=== PATIENT | female | born 1970 | race Caucasian/White ===

== ENCOUNTER → 2020-09-12 14:39 | Outpatient (CLI) | payer OTHER, SELFPAY ==
[2020-09-12 15:37] LABS: RBC Urine None Seen (0-5/HPF)
[2020-09-12 16:50] LABS: Add Manual Diff / Slide Review NO; Appearance Urine UA CLEAR; Basophils Absolute Auto 0 /uL (0-100); Basophils Percent Auto 0.2 % (0-2); Bilirubin Urine UA NEGATIVE (NEGATIVE); Color Urine UA YELLOW; Eosinophils Absolute Auto 200 /uL (0-450); Eosinophils Percent Auto 2.1 % (2-4); Glucose Urine UA NEGATIVE (Negative); Hematocrit 37.4 % (36-46); Hemoglobin 12.9 g/dL (12.0-16.0); Ketones Urine UA NEGATIVE (NEGATIVE); Leukocyte Esterase Urine UA NEGATIVE (NEGATIVE); Lymphocytes Absolute Auto 2700 /uL (1100-4500); Lymphocytes Percent Auto 30.7 % (25-40); Mean Corpuscular HGB Conc 34.5 % (30-36); Mean Corpuscular Hemoglobin 30.4 PG (26-34); Mean Corpuscular Volume 88.1 fL (80-100); Monocytes Absolute Auto 400 /uL (0-900); Monocytes Percent Auto 4.9 % (3-14); Neutrophils Absolute Auto 5400 /uL (1500-7000); Neutrophils Percent Auto 62.1 % (50-75); Nitrite Urine UA NEGATIVE (Negative); Occult Blood Urine UA NEGATIVE (Negative); Platelet Count 296 X10^3/uL (150-400); Protein Urine UA 1+ (Negative); Red Blood Cell Count 4.24 X10^6/uL (4.0-5.2); Red Cell Distribution Width 14.3 % (11.6-14.8); Urobilinogen Urine UA 0.2 E.U./dL (0.2); White Blood Cell Count 8.8 X10^3/uL (4.5-11.0)
[2020-09-12 17:00] LABS: COVID19 -Nasal RAPID Negative (Negative)
[2020-09-12 17:20] LABS: Blood Urea Nitrogen 12 mg/dL (7-17); Calcium 9.6 mg/dL (8.4-10.2); Carbon Dioxide 31 mmol/L (22-32); Chloride 100 mmol/L (98-107); Estimated Glomerular Filt Rate > 60.0 mL/min (>60); Glucose 93 mg/dL (70-100); HEMOLYSIS < 15 (0-50); Potassium 4.2 mmol/L (3.4-5.1); Sodium 136 mmol/L (137-145)
[2020-09-12 17:21] LABS: Bacteria Urine Few (2-10); Culture Indicated Urine Cult Not Indicated; Squamous Epithelial Cell Urine 1-5 /HPF (0-5/HPF); WBC Urine 0-1/HPF (0-5/HPF); pH Urine UA 6.5 (4.5-8.0)
== END ==
PROVIDERS: Physician Assistant; PCP Internal Medicine; Referring Provider Orthopaedic Surgery Orthopaedic Surgery of the Spine; Visit Provider Orthopaedic Surgery Orthopaedic Surgery of the Spine
DX: Z01.812 Encounter for preprocedural laboratory examination (principal); Z11.59 Encounter for screening for other viral diseases; N39.0 Urinary tract infection, site not specified
CPT/HCPCS: 36415; 80048; 81001; 85025; 87635

== ENCOUNTER 2020-09-14 07:11 | Inpatient (IN) | payer OTHER, SELFPAY ==
[2020-09-12 13:59] VITALS: BMI 31.4
[2020-09-14] VITALS (15 sets, daily range): BP systolic 108–142; BP diastolic 58–89; PULSE 83–119; RESP 14–18; TEMP 36–37.1; O2SAT 91–96; BMI 31.4
--- NOTE | 2020-09-14 | DI.RAD.S_ITS ---
PROCEDURE: XR LUMBAR SPINE 2-3V INDICATIONS: L5-S1 TLIF TECHNIQUE: 2 intraoperative fluoroscopic views of the lumbar spine were acquired. COMPARISON: None. FINDINGS: Intraoperative fluoroscopic images of lower lumbar spine shows posterior fusion hardware at L5-S1 level with intervertebral spacer placement. IMPRESSION: Fluoro guidance was provided intraoperatively for fusion of L5-S1 vertebral bodies. Dictated by: Mundo Arias M.D. on 09/14/2020 at 11:53 Approved by: Mundo Arias M.D. on 09/14/2020 at 11:54
[2020-09-14] MEDS: LACTATED RINGERS 1,000 ML 42 ML IV ×2 (08:05→10:55)
--- NOTE | 2020-09-14 08:37 | PM.PREOP ---
Pre-operative Note COVID-19 COVID-19 status: Negative Result date/Date tested (Pos, Neg/Pending): 09/12/20 Interval Note History & Physical reviewed/Exam performed by Physician: Yes Changes to H&P: No
[2020-09-14] MEDS: ACETAMINOPHEN 325 MG TABLET 975 MG PO (08:43)
[2020-09-14] MEDS: CLINDAMYCIN 900 MG/50 ML PIGGYBACK 50 MG IV ×2 (08:55→16:24)
--- NOTE | 2020-09-14 09:21 | SUR.OPER ---
Prone on spine table, head in foam head support, padded chest and pelvic supports, gel pad at knees, lower legs supported by pillows; nipples, genitalia and toes free of pressure, arms secured on foam padded arm boards at <90 degrees abduction. Tape over blanket at thigh secured to table.
[2020-09-14] MEDS: BUPIVACAINE LIPOSOME 266 MG/20 ML VIAL INJ (09:29)
[2020-09-14] MEDS: BUPIVACAINE 0.25% W/ EPI (PF) 10 ML VIAL 20 ML INJ (09:30)
--- NOTE | 2020-09-14 11:08 | P.OP_ITS ---
Operative Date/Time/Diagnoses Date of procedure: 09/14/20 Time of procedure: 08:49 Pre-op diagnosis: 1. L5-S1 spinal stenosis 2. L5-S1 spondylolisthesis Post-op diagnosis: same Procedure & Clinicians Procedure: 1. L5-S1 Postero-lateral and posterior interbody fusion 2. L5-S1 interbody cage placement. 3. L5-S1 decompressive laminectomy with bilateral facetecomies 4. L5-S1 Posterior non-segmental instrumentation 5. [place] of bone marrow from iliac crest 6. Utilization of microsurgical technique and operating microscope Same procedure as scheduled: Yes Indications: Patient has been having chronic back pain and worsening lumbar radiculopathy. Patient failed multiple conservative management with worsening pain weakness and numbness in her lower extremity. Patient has been having difficulty performing activity of daily living. After discussing risks benefits of treatment options, patient elected proceed with surgery. Surgeon: Josh Sheriff [employer] Literature Professor: Lolita Bocanegra Click Yes if Unassisted: No Anesthesia Type: General Operative Notes Closure Type: primary Specimen(s): none sent Prosthetic devices, grafts, tissues, transplants, or devices: Globus revolve screws, Rise cage Estimated Blood Loss (mL): 100 Blood products transfused: none Procedure in detail: Patient was seen in the preoperative area. Risks and benefits of the surgery was discussed with the patient. Informed consent was obtained from the patient and placed in the chart. Surgical site was marked. Patient was taken to the operative room. General anesthesia was administered. Prophylactic antibiotic was given to the patient less than 30 min before the incision was made. Patient was placed into a prone position on the John table. Patient's back was then prepped and draped in the sterile fashion. Time- out was performed at this time. Using AP and lateral C-arm imaging the interval between L5-S1 was identified and marked on patient's back. A 2 inch incision 2 in from midline was made on the right side first. The fascia was incised in line with skin incision. Globus MARS retractors was placed inside the incision and docked onto the L5 lamina. Using microsurgical technique and operating microscope, a L5 laminectomy and L5- S1 facetectomy was performed using a Kerrison rongeur. Patient was found have severe neural foraminal stenosis and required a total facetectomy for decompression which rendered L5-S1 grossly unstable and required a fusion procedure at the same time. The disc space at L5-S1 was identified. And a total diskectomy was performed at L5-S1 level. The endplates were decorticated using a rasp and shaver. The total diskectomy and decortication was performed at L5-S1 level in order to to accomplish a L5-S1 fusion. The local bone from the laminectomy and facetectomy was saved for local bone grafting. After the total diskectomy and decortication was completed, Trifecta bone graft material was combined with local bone that was harvested earlier. At this time, a separate skin is incision was made over the iliac crest. A Jamshidi needle was inserted into the iliac crest through a separate skin incision. 5 cc of bone marrow aspiration was obtained through the separate skin incision using a Jamshidi needle from the iliac crest. The bone marrow aspiration was combined with local bone and the Trifecta bone grafting material. The bone grafting material was placed into the L5-S1 interbody space along with a expandable cage. The cage was expanded to its maximum height using the torque limiting screwdriver. At this time a mirror image incision was made on the left side. The fascia was incised in line with the skin incision. Globus MARS retractor was inserted and docked onto the L5-S1 posterolateral gutter. Using the power drill, posterior- lateral decortication was performed at L5-S1 level until bleeding cortical bone was identified. The remaining bone grafting material was placed into the L5-S1 posterior lateral gutter he order to accomplish posterolateral fusion at the L5- S1 level. Using the double C-arm technique, pedicle screws were placed into the L5-S1 pedicles bilaterally. This was done by placing the Jamshidi needle into the pedicles, then placing the guidewires over the Jamshidi needle, and finally placing the cannulated screws over the guidewires bilaterally. After the pedicle screws were placed, 2 titanium rods was locked into the heads of the pedicle screws using locking caps and torque limiting screwdriver. After all the hardware was placed, and confirmed with AP and lateral C-arm imaging, the wound was then irrigated with sterile normal saline and packed with Ray-Preethi gauze for 3 min to accomplish hemostasis. After the gauze was removed the deep fascia was closed with #1 Vicryl suture. The subcutaneous layer was closed with 2-0 Vicryl. The skin was closed with skin ca. Patient tolerated the procedure well. There were no complications. Complications: none Post-operative Condition: stable Disposition: PACU Plan for aftercare: Admit to inpatient hospital
[2020-09-14] MEDS: hydrOXYzine 50 MG/ML INJ 25 MG IM (11:31)
[2020-09-14] MEDS: OXYCODONE IR 5 MG TABLET PO (11:42)
--- NOTE | 2020-09-14 11:46 | SUR.PHASEI ---
Report given to Liz STEVEN .
--- NOTE | 2020-09-14 13:30 | PC.NURSE ---
Addendum entered by Abel Saba R.N. 09/14/20 14:35: Did not hear back from daron GREER yet, fax sent to surgery (Dr. Sheriff and/or Daron GREER) for clarification on duplicate orders/post of hip order set. Patient remains VSS. Dressing to surgical back site remains CDI. Moving all extremities, denies numbness or tingling. No urge to void yet at this time, continue to monitor for post op void. incentive spirometer given to patient, educated on its use, states understanding but too tired to try at this time, and left at bedside. Plan to work with physical therapy as ordered. Call light within reach, continue to monitor. Original Note: Clarification needed on transfer order sets, as well as clarification on if IV fluids needed. Message left with Parminder GREER, will follow.
--- NOTE | 2020-09-14 14:32 | PT.IIE ---
Current Diagnoses Other spondylosis with radiculopathy, lumbosacral region (09/14/20) Spinal stenosis, lumbar region without neurogenic claudication (09/14/20) Surgery Performed Operation Date: 09/14/20 08:45 Actual Procedures p L5-S1 TLIF with instumentation - Josh Sheriff MD Surgical History (Last Updated 09/12/20 @ 14:10 by Aliyah Caraballo, RN) History of bunionectomy of left great toe History of bunionectomy of right great toe History of carpal tunnel surgery of left wrist (06/18/19) Hx of cervical discectomy (11/03/18) Hx of knee surgery (2018) Hx of knee surgery (2009) Hx of tubal ligation (1991) Medical History (Last Updated 09/12/20 @ 14:10 by Aliyah Caraballo RN) Anxiety Congenital solitary kidney COPD (chronic obstructive pulmonary disease) Depression Fibromyalgia Fusion of spine of cervical region GERD (gastroesophageal reflux disease) Mild intermittent asthma DANNY (obstructive sleep apnea) Osteoarthritis Pneumonia Seasonal allergies Seizure disorder Tumor (02/24/20) UTI (urinary tract infection) Vaginal infection Physical Therapy Inpatient Evaluation/Re-Eval M1 PT/OT-IP Prior Functional Status Start: 09/14/20 15:44 Freq: NEEDED Status: Active Protocol: Document 09/14/20 14:32 AB (Rec: 09/14/20 15:53 AB [id number]) Medical Review Prior Functional Status Medical History Reviewed Yes Communication able to make needs known Mobility and Gait pt sated that she is indpeendent with all mobilities and ambulation without AD Social History Household Members spouse Living Arrangements RV Number of Floors (Floors) Two Floors Number of Stairs To Enter/Railing? 5 steps with L rail and L door grab bar to enter has 1 steps to living/dining robert 2 steps with L wall bar to bedroom Home Environment Standard Height Toilet,Walk in Shower,Built-In Shower Seat Home Equipment Front Wheel Walker,Four Wheel Walker,Straight Cane,Raised Toilet Seat Without Armrests, Hand Held Shower,Grab Bars In Shower M2 PT-IP Current Condition Start: 09/14/20 15:44 Freq: NEEDED Status: Active Protocol: Document 09/14/20 14:32 AB (Rec: 09/14/20 15:53 AB [email or web address]) Physical Therapy Current Condition Current Condition Evaluation Date 09/14/20 Treatment Diagnosis s/p L5S1 posterior fusion/lami ; difficulty in walking Onset Date 09/14/20 Precautions Lumbar Precautions Log Roll,No Twisting,Limit Bending,Lifting Restriction of 10 lbs,Gait Belt above Incisional Area M3 PT-IP Subjective Start: 09/14/20 15:44 Freq: NEEDED Status: Active Protocol: Document 09/14/20 14:32 AB (Rec: 09/14/20 15:53 AB [id number]) Subjective Physical Therapy Visit Type Type Initial Evaluation Visit Start Time 14:32 Visit Stop Time 15:10 Total Visit Minutes 38 Number of SUBSTATION DESIGN DRAFTSPERSON Visits 0 Physical Therapy Visit Comments Patient Comments agreeable to do PT Therapy Pain Assessment Pain When Pain Assessed At Rest Pain Present Pain Present Pain Reported Location lower back Intensity 7 Scale Used Numeric (0 - 10) M4 PT-IP Mobility and Gait Start: 09/14/20 15:44 Freq: NEEDED Status: Active Protocol: Document 09/14/20 14:32 AB (Rec: 09/14/20 15:53 AB [email or web address]) PT-Bed Mobility Assessment Rolling Type of Rolling Log Rolling Level of Assist Standby Assistance Supine to Sit Supine to Sit Standby Assistance Sit to Supine Sit to Supine Standby Assistance PT-Transfer Assessment Sit to and From Stand Sit to and from Stand Contact Guard Assistance,Use of Upper Extremities Equipment Transfer Assistive Device Gait Belt,Front Wheeled Walker Orthotic/Prosthetic Devices or Brace: No Transfers Transfer Destination Chair Transfer Technique ambulated using FWW Transfer Ability Level of Assist Contact Guard Assistance,1 Person Assistance,Use of Upper Extremities Comments Mobility Comments educated on back precautions and log roll bed mobility. completed supine to sit log roll SBA. pt was able to sit on EOB SBA. completed sit to stand CGA and cues. pt ambulated in room ~ 40 ft CGA. agreed to sit on chair. positioned on chair. call light and table placed within reach. Left pt with spouse in room. Gait Assessment Gait Gait Assistance Required: Contact Guard Assist Distance (Feet) 40 Able to Maintain Weight Bearing Status Yes During Gait Assistive Devices Assistive Device Gait Belt,Front Wheeled Walker Orthotic/Prosthetic Devices or Brace: No Gait Deviations General Gait Pattern Antalgic,Decreased Stride Length,Decreased Feet Clearance,Step-to Gait Factors Limiting Gait Function Factors Limiting Gait Function Decreased Activity Tolerance, Decreased Strength,Limited Range of Motion,Pain,Poor Balance,Poor Safety Awareness PT-Balance Assessment Sitting Balance and Reactions Static Sitting Balance Ability Good Dynamic Sitting Balance Ability Good Standing Balance and Reactions Static Standing Balance Ability Fair Dynamic Standing Balance Ability Fair Device Used FWW M5 PT-IP Objective Assessments Start: 09/14/20 15:44 Freq: NEEDED Status: Active Protocol: Document 09/14/20 14:32 AB (Rec: 09/14/20 15:53 AB [id number]) Orientation Orientation/Cognition Level of Alertness Alert Orientation Name,Place,Situation Safety Awareness Understands Safety Issues Memory Description No Deficits Noted Gross Range of Motion Lower Extremity ROM Assessment Within Functional Limits Strength Lower Extremity Strength Assessment Within Functional Limits Coordination Assessment Gross Coordination Gross Coordination WNL Sensation Assessment Sensation Gross Sensation WNL Muscle Tone Muscle Tone WNL Yes M6 PT-IP Treatment Start: 09/14/20 15:44 Freq: NEEDED Status: Active Protocol: Document 09/14/20 14:32 AB (Rec: 09/14/20 15:53 AB [id number]) Physical Therapy Treatment Education Education Provided Precautions,Weight Bearing Status,Post-Op Packet,Safety M7 PT-IP Assessment and Plan Start: 09/14/20 15:44 Freq: NEEDED Status: Active Protocol: Document 09/14/20 14:32 AB (Rec: 09/14/20 15:53 AB [id number]) PT Summary Assessment and Plan Potential Rehabilitation Potential Good Status of Condition at Evaluation Stable Summary Impairments Pain,ROM,Strength,Balance,Bed Mobility,Transfers,Gait, Activity Tolerance Assessment Summary pt requiring SBA to CGA with mobility and plans to go home with spouse to assist her. pt will likely progress during hospital stays. will have to conduct stair training prior to d/c. Goals Bed Mobility Goal Independent Transfer Goal Independent,Front Wheeled Walker Gait Goal Independent,Front Wheel Walker Gait Distance 200 Other Goals up/down platform step using FWW SBA up/down 5 steps L rail SBA Days to Meet Goals 3 Frequency of Treatment Frequency Of Treatment Twice a Day Treatment Plan Physical Therapy Treatment Plan Bed Mobility Training,Transfer Training,Gait Training, Therapeutic Exercise,Balance Retraining,Post Op Education, Discharge Planning,Hot or Cold Pack,Neuromuscular Re-ed, Coordination Retraining,Manual Therapy Other Recommendations and Next Treatment bed mobility, ambulation, Focus stair climbing Recommendations To Nursing Amount of Assist Needed 1 Person Assist Discharge Recommendations PT Discharge Recommendations Home with Assistance Transportation Needs at Discharge Private Vehicle
[2020-09-14] MEDS: OXYCODONE IR 5 MG TABLET 10 MG PO ×3 (14:41→21:07)
[2020-09-14] MEDS: ACETAMINOPHEN 325 MG TABLET 650 MG PO (14:41)
[2020-09-14] MEDS: hydrOXYzine pamoate 25 MG CAPSULE PO ×2 (14:44→21:07)
[2020-09-14] MEDS: SODIUM CHLORIDE 0.9% 1,000 ML 100 ML IV (15:01)
[2020-09-14] MEDS: HYDROMORPHONE 0.5 MG INJ IV (16:24)
[2020-09-14] MEDS: ONDANSETRON 4 MG/2 ML INJ IV (18:15)
[2020-09-14] MEDS: SENNOSIDES 8.6 MG TABLET 17.2 MG PO (21:07)
[2020-09-14] MEDS: DOCUSATE 100 MG CAPSULE PO (21:07)
[2020-09-15] MEDS: SODIUM CHLORIDE 0.9% 1,000 ML 100 ML IV (00:06)
[2020-09-15] MEDS: CLINDAMYCIN 900 MG/50 ML PIGGYBACK 50 MG IV (00:07)
[2020-09-15] MEDS: OXYCODONE IR 5 MG TABLET 10 MG PO ×4 (00:08→11:58)
[2020-09-15] MEDS: hydrOXYzine pamoate 25 MG CAPSULE PO ×3 (04:38→11:58)
[2020-09-15 05:32] VITALS: BP 118/72; PULSE 88; RESP 16; TEMP 36.1; O2SAT 98
[2020-09-15] MEDS: PANTOPRAZOLE 20 MG TABLET PO (05:45)
[2020-09-15 06:05] LABS: Hematocrit 36.1 % (36-46); Hemoglobin 12.3 g/dL (12.0-16.0)
--- NOTE | 2020-09-15 07:47 | PM.PNPO.1 ---
Subjective Subjective Date Patient Seen: 09/15/20 Time Patient Seen: 07:47 Interval history: Patient's pain is [id number] this morning. Denies fever or chills. No nausea or vomiting. Exam Vital Signs (past 8 hours): - 09/14/20 23:52 09/15/20 05:32 Temperature 97.2 F L 97.0 F L Pulse Rate 91 H 88 Respiratory Rate 16 16 Blood Pressure 119/58 L 118/72 Pulse Oximetry 95 98 Oxygen Delivery Method Room Air Oxygen Flow Rate 0 Narrative Exam Narrative: 50-year-old female resting comfortably in bed in no apparent distress. Lumbar dressing is clean, dry and intact. Motor functions intact distal bilateral lower extremities. Sensation is grossly intact to light touch bilateral lower extremities. Both legs are warm and dry. Objective Labs Result Diagrams: 09/15/20 05:05 Labs: Laboratory Results - last 24 hr 09/15/20 05:05 Hgb 12.3 Hct 36.1 PFSH Medical History (Updated 09/12/20 @ 14:10 by Aliyah Caraballo RN) Anxiety Congenital solitary kidney COPD (chronic obstructive pulmonary disease) Depression Fibromyalgia Fusion of spine of cervical region GERD (gastroesophageal reflux disease) Mild intermittent asthma DANNY (obstructive sleep apnea) Osteoarthritis Pneumonia Seasonal allergies Seizure disorder Tumor (02/24/20) UTI (urinary tract infection) Vaginal infection Surgical History (Updated 09/12/20 @ 14:10 by Aliyah Caraballo RN) History of bunionectomy of left great toe History of bunionectomy of right great toe History of carpal tunnel surgery of left wrist (06/18/19) Hx of cervical discectomy (11/03/18) Hx of knee surgery (2018) Hx of knee surgery (2009) Hx of tubal ligation (1991) Social History household members: spouse Smoking Status: Former smoker alcohol intake: current Assessment & Plan Post-op Postoperative Procedures: Procedures Operation Date: 09/14/20 08:45 Actual Procedures Side Surgeon p L5-S1 TLIF with instumentation Josh Sheriff MD Postop day 1. Patient progressing as expected. Mobilize with physical therapy. Likely discharge home today.
[2020-09-15 08:27] VITALS: BP 131/99; PULSE 87
[2020-09-15] MEDS: FLUoxetine 20 MG CAPSULE 40 MG PO (08:27)
[2020-09-15] MEDS: LOSARTAN 50 MG TABLET PO (08:27)
[2020-09-15] MEDS: DOCUSATE 100 MG CAPSULE PO (08:27)
[2020-09-15 08:56] VITALS: BP 132/89; PULSE 79; RESP 14; TEMP 36.7; O2SAT 96
--- NOTE | 2020-09-15 09:17 | OT.IP.EVAL ---
Current Diagnoses Other spondylosis with radiculopathy, lumbosacral region (09/14/20) Spinal stenosis, lumbar region without neurogenic claudication (09/14/20) Surgery Performed Operation Date: 09/14/20 08:45 Actual Procedures p L5-S1 TLIF with instumentation - Josh Sheriff MD Past Medical History (Last Reviewed 09/15/20 @ 11:06 by Ji Zurita PA-C) Anxiety Congenital solitary kidney COPD (chronic obstructive pulmonary disease) Depression Fibromyalgia Fusion of spine of cervical region GERD (gastroesophageal reflux disease) Mild intermittent asthma DANNY (obstructive sleep apnea) Osteoarthritis Pneumonia Seasonal allergies Seizure disorder Tumor (02/24/20) UTI (urinary tract infection) Vaginal infection Surgical History (Last Reviewed 09/15/20 @ 11:06 by Ji Zurita PA-C) History of bunionectomy of left great toe History of bunionectomy of right great toe History of carpal tunnel surgery of left wrist (06/18/19) Hx of cervical discectomy (11/03/18) Hx of knee surgery (2018) Hx of knee surgery (2009) Hx of tubal ligation (1991) Occupational Therapy Inpatient Evaluation/Re-Eval M1 PT/OT-IP Prior Functional Status Start: 09/15/20 11:52 Freq: NEEDED Status: Active Protocol: Document 09/15/20 09:17 [facility] (Rec: 09/15/20 12:18 [facility] [id number]) Medical Review Prior Functional Status Medical History Reviewed Yes Communication able to make needs known Mobility and Gait pt sated that she is indpendent with all mobilities and ambulation without AD Activities of Daily Living and IADL's Pt states due to pain needing increased time to do Adl and IADl needs. Pt states having trouble to chase her bra. Social History Household Members spouse Living Arrangements RV Number of Floors (Floors) Two Floors Number of Stairs To Enter/Railing? 5 steps with L rail and L door grab bar to enter has 1 steps to living/dining robert 2 steps with L wall bar to bedroom Home Environment Standard Height Toilet,Walk in Shower,Built-In Shower Seat Home Equipment Front Wheel Walker,Four Wheel Walker,Straight Cane,Raised Toilet Seat Without Armrests, Hand Held Shower,Grab Bars In Shower M2 OT-IP Current Condition Start: 09/15/20 11:52 Freq: Status: Active Protocol: Document 09/15/20 09:17 [facility] (Rec: 09/15/20 12:18 [facility] [id number]) Occupational Therapy Current Condition Current Condition Evaluation Date 09/15/20 Treatment Diagnosis S/p L5-S1 posterior fusion/ lami Diagnosis Onset Date 09/15/20 Post Operative Precautions Lumbar Precautions Log Roll,No Twisting,Limit Bending,Lifting Restriction of 10 lbs,Gait Belt above Incisional Area M3 OT- IP Subjective and Pain Start: 09/15/20 11:52 Freq: Status: Active Protocol: Document 09/15/20 09:17 [facility] (Rec: 09/15/20 12:18 [facility] [id number]) OT- Subjective Occupational Therapy Visit Type Type Initial Evaluation Visit Start Time 08:05 Visit Stop Time 09:17 Total Visit Minutes 32 Notes Pt seen split time due to having breakfast [phone] and [id number]. Occupational Therapy Visit Comments Patient Comments Pt agreed to get dressed and pt's in the room. Patient/Caregiver Goals TO go home. OT Pain Assessment Pain When Pain Assessed During Mobility Pain Present Pain Present Pain Reported Location lower back Intensity 6 Scale Used Numeric (0 - 10) M4 OT- IP ADL's Start: 09/15/20 11:52 Freq: Status: Active Protocol: Document 09/15/20 09:17 [facility] (Rec: 09/15/20 12:18 [facility] [id number]) OT PAB-Vcoz-Cpoccdy General Evaluation Self-Feeding Ability Independent OT ADL-Grooming General Evaluation Grooming Ability Standby Assistance Areas Needing Assistance Retrieving/Set-up of Grooming Items OT ADL-Oral Care General Eval Oral Care Ability Standby Assistance Comments Oral Care Comments VC to hinge at her hips to spit into the sink or just spit into a cup in order to best follow her back precautions. OT ADL-Dressing General Eval Lower Body Dressing Ability Standby Assistance Areas Needing Assistance Socks Assistive Devices Dressing Assistive Devices Overhead Garage Door Hanger Comments OT Dressing Comments Pt able to comfortable cross her legs over the do LB dressing needs. OT ADL-Toileting General Evaluation Toileting Ability Standby Assistance Comments OT Toileting Comments Pt able to follow back precautions to appropriately wipe from the front but will need assist from the back, pt given information regarding toilet paper , otherwise pt's states will assist. OT ADL-Bathing Comments OT Bathing Comments NOt performed. M5 OT- IP IADL's Start: 09/15/20 11:52 Freq: Status: Active Protocol: Document 09/15/20 09:17 [facility] (Rec: 09/15/20 12:18 [facility] [id number]) OT-Instrumental Activities of Daily Living Home Safety Awareness Awareness of Need for Assistance at Home Good Awareness Ability to Problem Solve Emergency Able to Problem Solve Situations Medication Management Medication Management No Deficits Identified Money Management Money Management No Deficits Identified Money Management Comments Pt's able to assist as needed. Meal Preparation Meal Preparation Caregiver Provides Assist Snaker Snaker Caregiver Provides Assist M6 OT- IP Functional Cognition Start: 09/15/20 11:52 Freq: Status: Active Protocol: Document 09/15/20 09:17 [facility] (Rec: 09/15/20 12:18 [facility] [id number]) Cognitive Factors Limiting Selfcare Function Cognitive Ability Level of Alertness Alert Patient Orientation Name,Age,Birthday,Month,Date, Year,Day of Week,Place, Situation Attention Span Ability Capable of Focused Attention, Capable of Sustained Attention Ability to Follow Commands Able to Follow Multi-Step Commands Memory Description No Deficits Noted Safety Awareness Underestimates Need for Assistance Problem Solving Ability No deficits Noted Cognitive Comments Cognitive Assessment Comments Pt able to follow back precautions with good safety , mainly just vc to slow down and keep the FWW in front of her at all times. OT- Vision and Hearing OT- Hearing Assessment OT- Hearing Assessment WFL OT- Vision Assessment Visual Acuity Glasses For Reading M7 OT- IP Mobility and Balance Start: 09/15/20 11:52 Freq: Status: Active Protocol: Document 09/15/20 09:17 [facility] (Rec: 09/15/20 12:18 [facility] [id number]) OT- Bed Mobility Assessment Rolling Type of Rolling Roll to Left Level of Assistance Standby Assistance Supine to Sit Supine to Sit Assist Standby Assistance Sit to Supine Sit to Supine Assist Standby Assistance Scooting Scooting to Edge of Bed Standby Assistance OT-Transfer Assessment Sit to and From Stand Sit to and from Stand Standby Assistance Transfers Transfer Ability Standby Assistance Technique Transfer Destination Bed,Chair,Shower Stall Transfer Technique Stand Step Pivot Devices Transfer Assistive Devices Gait Belt,Front Wheeled Walker Comments Mobility Comments Pt SBA for all mobility needs with FWW. OT- Balance Assessment Sitting Balance and Reactions Static Sitting Balance Ability Normal Dynamic Sitting Balance Ability Normal Standing Balance and Reactions Static Standing Balance Ability Good M8 OT- IP Objective Assessments Start: 09/15/20 11:52 Freq: Status: Active Protocol: Document 09/15/20 09:17 [facility] (Rec: 09/15/20 12:18 [facility] [id number]) OT Gross Range of Motion Upper Extremity Range of Motion Assessment Within Functional Limits OT-Muscle Tone Assessment Muscle Tone WNL Yes M9 OT- IP Assessment and Plan Start: 09/15/20 11:52 Freq: Status: Active Protocol: Document 09/15/20 09:17 [facility] (Rec: 09/15/20 12:18 [facility] [id number]) OT Summary Assessment and Plan Potential Rehabilitation Potential Excellent Analytic Complexity at Evaluation Low Summary OT Impairments Pain,Functional Mobility, Toileting,Bathing Progress Towards Goals Progressing Toward Goals Assessment Summary Pt low complexity, doing well, pt and has good understanding for all equipment needs, back precautions for ADL and functional mobility. Pt issued a firestopper installer and long handled sponge and pt to look into possible getting a toilet paper aid. Pt has a supportive to be able to assist as needed. Goals Dressing Goal Independent Toileting Goal Independent Patient/Caregiver Education Goal Demonstrate Post-Op Precautions,Caregiver Independent Assisting Patient Days to Meet Goals 1 Frequency of Treatment Frequency Of Treatment Once a Day Treatment Plan OT Treatment Plan ADL Training,Functional Mobility,Patient/Family Education,Discharge Planning Discharge Recommendations OT Discharge Recommendations Home with Assistance Home Equipment Needs toilet paper aid Transportation Needs at Discharge Private Vehicle
--- NOTE | 2020-09-15 10:19 | PT.IPTN ---
Current Diagnoses Other spondylosis with radiculopathy, lumbosacral region (09/14/20) Spinal stenosis, lumbar region without neurogenic claudication (09/14/20) Surgery Performed Operation Date: 09/14/20 08:45 Actual Procedures p L5-S1 TLIF with instumentation - Josh Sheriff MD Physical Therapy Treatment Note M2 PT-IP Current Condition Start: 09/14/20 15:44 Freq: NEEDED Status: Active Protocol: Document 09/14/20 14:32 [facility] (Rec: 09/14/20 15:53 AB [id number]) Physical Therapy Current Condition Current Condition Evaluation Date 09/14/20 Treatment Diagnosis s/p L5S1 posterior fusion/lami ; difficulty in walking Onset Date 09/14/20 Precautions Lumbar Precautions Log Roll,No Twisting,Limit Bending,Lifting Restriction of 10 lbs,Gait Belt above Incisional Area M3 PT-IP Subjective Start: 09/14/20 15:44 Freq: NEEDED Status: Active Protocol: Document 09/15/20 10:03 [place] (Rec: 09/15/20 11:39 [place] [id number]) Subjective Physical Therapy Visit Type Type Treatment Note Visit Start Time 10:03 Visit Stop Time 10:19 Total Visit Minutes 16 Number of DOCUMENT SPECIALIST Visits 1 Physical Therapy Visit Comments Patient Comments agreeable to do PT M4 PT-IP Mobility and Gait Start: 09/14/20 15:44 Freq: NEEDED Status: Active Protocol: Document 09/15/20 10:03 [place] (Rec: 09/15/20 11:39 [place] [id number]) PT-Bed Mobility Assessment Rolling Type of Rolling Log Rolling Level of Assist Standby Assistance Supine to Sit Supine to Sit Standby Assistance Sit to Supine Sit to Supine Standby Assistance PT-Transfer Assessment Sit to and From Stand Sit to and from Stand Contact Guard Assistance,Use of Upper Extremities Equipment Transfer Assistive Device Gait Belt,Front Wheeled Walker Orthotic/Prosthetic Devices or Brace: No Transfers Transfer Destination Bed,Chair Transfer Technique ambulated using FWW Transfer Ability Level of Assist Contact Guard Assistance,1 Person Assistance,Use of Upper Extremities Comments Mobility Comments Pt in chair upon arrival from therapy w/ in room. Patient CGA for sit<>stand w/ FWW. She then ambulated ~100 ft to stairs w/ FWW and SBA. She ascended/descended 3 steps w/ L rail x2 w/ no LOB SBA and step to pattern. Her provided SBA and cues for no twisting on second set of steps. Patient ambulated back to room additional ~100 ft w/ FWW and SBA w/ proper use of FWW, she then performed logroll into and out of bed SBA. Patient and state they feel safe to return home . Gait Assessment Gait Gait Assistance Required: Standby Assistance Distance (Feet) 200 Able to Maintain Weight Bearing Status Yes During Gait Assistive Devices Assistive Device Gait Belt,Front Wheeled Walker Orthotic/Prosthetic Devices or Brace: No Gait Deviations General Gait Pattern Decreased Stride Length, Decreased Feet Clearance Factors Limiting Gait Function Factors Limiting Gait Function Decreased Activity Tolerance, Decreased Strength,Limited Range of Motion,Pain,Poor Balance,Poor Safety Awareness Comments Gait Comments Please refer to mobility section for details. Stair Climbing Assessment Evaluation Level of Assist On Stairs Standby Assistance Devices Stair Climbing Assistive Devices Left Railing Technique/Endurance Stair Climbing Direction Ascend and Descend Stair Climbing Technique Step to Step Number of Steps Climbed 3 Stair Climbing Set # Repetitions (reps) 2 Comments Stair Climbing Comments Patient ascended/descended 3 steps x2 w/ L rail ascending and SBA step to pattern. Pts provided SBA and cues to avoid twisting on seconds set of steps. Pt and state they feel safe to perform steps at home. PT-Balance Assessment Sitting Balance and Reactions Static Sitting Balance Ability Good Dynamic Sitting Balance Ability Good Standing Balance and Reactions Static Standing Balance Ability Good Dynamic Standing Balance Ability Good Device Used FWW M5 PT-IP Objective Assessments Start: 09/14/20 15:44 Freq: NEEDED Status: Active Protocol: Document 09/14/20 14:32 [facility] (Rec: 09/14/20 15:53 AB [id number]) Orientation Orientation/Cognition Level of Alertness Alert Orientation Name,Place,Situation Safety Awareness Understands Safety Issues Memory Description No Deficits Noted Gross Range of Motion Lower Extremity ROM Assessment Within Functional Limits Strength Lower Extremity Strength Assessment Within Functional Limits Coordination Assessment Gross Coordination Gross Coordination WNL Sensation Assessment Sensation Gross Sensation WNL Muscle Tone Muscle Tone WNL Yes M6 PT-IP Treatment Start: 09/14/20 15:44 Freq: NEEDED Status: Active Protocol: Document 09/15/20 10:03 [place] (Rec: 09/15/20 11:39 [place] [id number]) Physical Therapy Treatment Education Education Provided Precautions,Weight Bearing Status,Post-Op Packet,Safety M7 PT-IP Assessment and Plan Start: 09/14/20 15:44 Freq: NEEDED Status: Active Protocol: Document 09/15/20 10:03 [place] (Rec: 09/15/20 11:39 [place] [id number]) PT Summary Assessment and Plan Potential Rehabilitation Potential Good Status of Condition at Evaluation Stable Summary Impairments Pain,ROM,Strength,Balance,Bed Mobility,Transfers,Gait, Activity Tolerance Progress Towards Goals Progressing Toward Goals Assessment Summary Pt SBA for all mobility, ambulation, and stairs. She was able to tolerated ~200 ft ambulation w/ FWW and 6 total steps w/ L rail ascending SBA. Her provided cues to avoid twisting and she demonstrated proper use of FWW and proper logroll when getting in and out of bed. Pt and state they feel safe to return home. Goals Bed Mobility Goal Independent Transfer Goal Independent,Front Wheeled Walker Gait Goal Independent,Front Wheel Walker Gait Distance 200 Other Goals up/down platform step using FWW SBA up/down 5 steps L rail SBA Days to Meet Goals 3 Frequency of Treatment Frequency Of Treatment Twice a Day Treatment Plan Physical Therapy Treatment Plan Bed Mobility Training,Transfer Training,Gait Training, Therapeutic Exercise,Balance Retraining,Post Op Education, Discharge Planning,Hot or Cold Pack,Neuromuscular Re-ed, Coordination Retraining,Manual Therapy Other Recommendations and Next Treatment bed mobility, ambulation, Focus stair climbing Recommendations To Nursing Amount of Assist Needed 1 Person Assist Discharge Recommendations PT Discharge Recommendations Home with Assistance Transportation Needs at Discharge Private Vehicle
[2020-09-15] MEDS: INFLUENZA VACCINE 0.5 ML SYRINGE IM (10:49)
--- NOTE | 2020-09-15 11:05 | P.DS_ITS ---
History of Present Illness History of Present Illness Date Patient Seen: 09/15/20 Time Patient Seen: 11:05 Chief complaint: INPT Narrative: See progress note. Discharge Providers Provider Date of admission: 09/14/20 07:11 Discharge Date: 09/15/20 Primary care physician: Peter Da Silva DO Consults: 09/14/20 12:19 Consult to Discharge Planning Routine Comment: Consult to Occupational Therapy Evaluate & Treat Comment: Physician Instructions: Evaluate and treat Consult to Physical Therapy Evaluate & Treat Comment: Physician Instructions: Evaluate and Treat Consult to Respiratory Therapy Evaluate & Treat Comment: Physician Instructions: Evaluate and treat Discharge provider: Ji Zurita PA-C Summary Hospital Course Discharge Diagnosis: 1. L5-S1 spinal stenosis 2. L5-S1 spondylolisthesis Hospital Course: 1. L5-S1 Postero-lateral and posterior interbody fusion 2. L5-S1 interbody cage placement. 3. L5-S1 decompressive laminectomy with bilateral facetecomies 4. L5-S1 Posterior non-segmental instrumentation 5. [place] of bone marrow from iliac crest 6. Utilization of microsurgical technique and operating microscope Same procedure as scheduled: Yes Indications: Patient has been having chronic back pain and worsening lumbar radiculopathy. Patient failed multiple conservative management with worsening pain weakness and numbness in her lower extremity. Patient has been having difficulty performing activity of daily living. After discussing risks benefits of treatment options, patient elected proceed with surgery. Surgeon: Josh Sheriff Country Printer: Lolita Bocanegra Click Yes if Unassisted: No Anesthesia Type: General Operative Notes Closure Type: primary Specimen(s): none sent Prosthetic devices, grafts, tissues, transplants, or devices: Globus revolve screws, Rise cage Estimated Blood Loss (mL): 100 Blood products transfused: none Status at Discharge Cognitive/behavioral status at discharge: at baseline, oriented Functional status at discharge: uses cane/walker Overall status at discharge: patient is progressing back to baseline Time Spent with Patient Time spent: Less than 30 minutes Exam Vital Signs (past 8 hours): - 09/15/20 05:32 09/15/20 08:27 09/15/20 08:56 Temperature 97.0 F L 98.0 F Pulse Rate 88 87 79 Respiratory Rate 16 14 Blood Pressure 118/72 131/99 H 132/89 Pulse Oximetry 98 96 Oxygen Delivery Method Room Air Oxygen Flow Rate 0 Narrative Exam Narrative: See progress note Objective Labs Result Diagrams: 09/15/20 05:05 Labs: Laboratory Results - last 24 hr 09/15/20 05:05 Hgb 12.3 Hct 36.1 PFSH Medical History Anxiety Congenital solitary kidney COPD (chronic obstructive pulmonary disease) Depression Fibromyalgia Fusion of spine of cervical region GERD (gastroesophageal reflux disease) Mild intermittent asthma DANNY (obstructive sleep apnea) Osteoarthritis Pneumonia Seasonal allergies Seizure disorder Tumor (02/24/20) UTI (urinary tract infection) Vaginal infection Surgical History History of bunionectomy of left great toe History of bunionectomy of right great toe History of carpal tunnel surgery of left wrist (06/18/19) Hx of cervical discectomy (11/03/18) Hx of knee surgery (2018) Hx of knee surgery (2009) Hx of tubal ligation (1991) Social History household members: spouse Smoking Status: Former smoker alcohol intake: current Discharge Assessment & Plan Assessment and Plan Assessment: Patient progressing as expected. Patient did well with physical therapy. Patient has assistance at home. Plan of Treatment: Discharge home today in stable condition. Discharge Plan Discharge Plan Patient Disposition: Home Discharge orders & Medications Prescriptions: New acetaminophen 325 mg Tablet 650 mg PO Q6HR PRN (Reason: Pain, Mild (1-3)) Qty: 60 RF: 0 docusate sodium [DOK] 100 mg Capsule 100 mg PO BID Qty: 30 RF: 0 oxycodone 5 mg Tablet 10 mg PO Q3HR PRN (Reason: Pain, Severe (7-10)) Qty: 60 RF: 0 hydroxyzine pamoate 25 mg Capsule 25 mg PO Q4HR PRN (Reason: Nausea And Vomiting) Qty: 30 RF: 0 Continued losartan 50 mg Tablet 50 mg PO DAILY RF: 0 ipratropium-albuterol 0.5 mg-3 mg(2.5 mg base)/3 mL Solution For Nebulization 3 ml INHALATION Q4-6H PRN (Reason: Shortness Of Breath) RF: 0 omeprazole 20 mg Capsule,Delayed Release(Dr/Ec) 20 mg PO DAILY RF: 0 hydroxyzine HCl 25 mg Tablet 25 mg PO BID RF: 0 albuterol sulfate [Ventolin HFA] 90 mcg/actuation Hfa Aerosol Inhaler 2 puff INHALATION Q6H PRN (Reason: Wheezing) RF: 0 fluoxetine 20 mg Capsule 40 mg PO DAILY RF: 0 Follow up/Referrals: Peter Da Silva DO [Primary Care Provider] - Josh Sheriff MD [Physician] - (2 wks) Diet/Activity/Treatments Diet: Diet as Tolerated Activity: Limit bending, lifting, twisting Cold/Heat Therapy: ice as needed Other treatments: out of work for six weeks starting 09/14/2020 Skin/Wound/Dressing Care Report to your healthcare provider any signs of infection, such as:: chills, fever, increased pain, unusual drainage and unusual redness Dressing: keep clean and dry Visit Report/Discharge Packet Instructions: DI for Prescription Opioid Use, DI for Transforaminal Lumbar Interbody Fusion Stand Alone Forms: Surgery Discharge Discharge Data Primary Care Provider: Peter Da Silva
--- NOTE | 2020-09-15 11:36 | PC.NURSE ---
Pt recieved her flu vaccine into her LUE deltoid and tolerated it well. Back dressing to surgical site has been changed to a coversite as pervious one was rolling up. IV d/c'd to write back of hand in preperation for discharge.
--- NOTE | 2020-09-15 12:03 | PC.NURSE ---
Patient cleared by P.T. and O.T. today and eager for discharge to home with her . IV dc'd intact. Dressing replace with coversite as previous one rolling up, now CDI. Discharge instructions and home care handouts reviewed with patient and her . They state understanding and have no further questions or concerns at this time. Patient medicated with pain medications prior to leaving for her ride home. Sitting up in chair having lunch, then ready for discharge to home. Patient states she has follow up appointment scheduled.
--- NOTE | 2020-09-15 12:13 | PC.NURSE ---
Pt is dressed and ready for discharge home with Spouse. Pain meds given. Went over d/c instructions with Pt and Spouse-discussed d/c meds, time of last dose, reviewed stroke education, no driving while on narcotics, drink plenty of fluids to prevent constipation, reviewed s/s of infection and when to call MD and follow up. Also reviewed back precautions with Pt to confirm understanding. Pt ready for discharge out via w/c by [facility] with Spouse and all belongings.
--- NOTE | 2020-09-15 12:21 | CM.DANOTE ---
Discharge Planning/Care Management DCP: assessment: case received, EMR reviewed, dc order noted. Met now with pt and her , at bedside. Pt is found up, dressed and eating lunch. She confirms that she is all set to leave after lunch. Her will provide prn supportive care. OT and PT have both worked with her. She has an appt set up in followup with Dr. Sheriff. No d/c concerns were identified by pt or care team members. P: home today. CM Discharge Assessment Start: 09/15/20 12:20 Freq: Status: Active Protocol: Document 09/15/20 12:20 ITV (Rec: 09/15/20 12:21 ITV [id number]) Discharge Planning Assessment Advance Directives? No History Provided By Patient,Family Member,Medical Record Prior Living Arrangements RV Household Members spouse Independent with ADL's Yes Is patient alert and oriented? Yes DME Already Rented / Owned FWW / Walker,Cane Comment we already have all the equipment that was recommended at the hosue and a cane is in the car. Discharge Plan Home Referrals Initiated None needed Pre-Anesthesia Assessment Start: 09/12/20 13:59 Freq: Status: Complete Protocol: Document 09/12/20 13:59 CAB (Rec: 09/12/20 14:19 CAB [id number]) Pre-Anesthesia Assessment PAC Comment Unable to reach pt for PAC assessment. Pt scheduled two days prior to surgery date, left Patient Information Reviewed Via Phone Assessment Assessment Completed With Patient Primary Care Provider Candie Medical Clearance Received Yes Seen Specialist in Last 12 Months Yes Specialist Seen Orthopedist Comment PCP pre-op visit 08/30/20 scanned Primary Language Serbian Hereditary Cancer Program Coordinator Required No Height 167.64 cm Weight 88.451 kg Body Mass Index (BMI) 31.4 Musculoskeletal Symptoms Back Pain Patient is completely paralyzed or No completely immobile Mental Status Oriented to own ability Currently Taking a Beta Rosie No Anti-Coagulant Therapy No Has a Breastfeeding Peer Counselor No Cardiac Testing No Hx Pacemaker/ICD No Pacemaker Rep Required? No Cardiac Clearance Received Not Applicable Urinary Catheter Present No Hx Urinary Self Catheterization No Diabetes No Patient No Lactating No Have you had any close contact with Unknown someone diagnosed with COVID-19? Marital Status Unknown Patient Discharge Plan Description Return Home
== END 2020-09-15 12:50 | disposition home or self-care (01) | DRG 454 ==
PROVIDERS: Admitting Provider Orthopaedic Surgery Orthopaedic Surgery of the Spine; PCP Internal Medicine; Referring Provider Internal Medicine; Visit Provider Orthopaedic Surgery Orthopaedic Surgery of the Spine
PROC: 0SG30AJ Fusion of Lumbosacral Joint with Interbody Fusion Device, Posterior Approach, Anterior Column, Open Approach (ICD-10-PCS; principal; 2020-09-14 08:45)
DX: M48.07 Spinal stenosis, lumbosacral region (principal); Q60.0 Renal agenesis, unilateral; M47.27 Other spondylosis with radiculopathy, lumbosacral region; M48.061 Spinal stenosis, lumbar region without neurogenic claudication; M43.17 Spondylolisthesis, lumbosacral region; I10 Essential (primary) hypertension; M79.7 Fibromyalgia; F32.9 Major depressive disorder, single episode, unspecified; J44.9 Chronic obstructive pulmonary disease, unspecified; G47.33 Obstructive sleep apnea (adult) (pediatric); K21.9 Gastro-esophageal reflux disease without esophagitis; Z87.891 Personal history of nicotine dependence
CPT/HCPCS: 36415; 72100; 76000; 85014; 85018; 90471; 90656; 97116; 97161; 97165; 97530; 97535; C1776; A9270; C9290; J0330; J1100; J1170; J2250; J2405; J2704; J3010; J3410; Q2038

== ENCOUNTER → 2021-05-08 09:34 | Outpatient (CLI) | payer OTHER, SELFPAY ==
[2020-09-14 12:10] VITALS: BMI 31.4
[2021-05-12 00:34] LABS: QuantiFERON Mitogen Value >10.00 IU/mL (.); QuantiFERON TB Gold Plus Negative (Negative); QuantiFERON TB1 Ag Value 0.05 IU/mL (.); QuantiFERON TB2 Ag Value 0.03 IU/mL (.)
== END ==
PROVIDERS: PCP Internal Medicine; Visit Provider Nurse Practitioner Family
DX: A15.9 Respiratory tuberculosis unspecified (principal)
CPT/HCPCS: 36415; 86480

== ENCOUNTER → 2021-06-19 09:30 | Outpatient (CLI) | payer OTHER, SELFPAY ==
[2020-09-14 12:10] VITALS: BMI 31.4
--- NOTE | 2021-06-19 09:35 | DI.RAD.S_ITS ---
PROCEDURE: XR KNEE LT 3V INDICATIONS: left knee pain TECHNIQUE: 3 views of the knee were acquired. COMPARISON: None. FINDINGS: Bones: No fractures or dislocations. No suspicious bony lesions. Mild tricompartmental osteoarthritis. Soft tissues: Trace joint effusion. No suspicious soft tissue calcifications. IMPRESSION: No acute osseous abnormalities. Mild osteoarthritis. Dictated by: Lloyd Gutierrez M.D. on 06/19/2021 at 9:56 Approved by: Lloyd Gutierrez M.D. on 06/19/2021 at 10:00
== END ==
PROVIDERS: PCP Internal Medicine; Referring Provider Nurse Practitioner Family; Visit Provider Nurse Practitioner Family
DX: M25.562 Pain in left knee (principal); M17.12 Unilateral primary osteoarthritis, left knee
CPT/HCPCS: 73562

== ENCOUNTER → 2021-11-21 13:00 | Outpatient (CLI) | payer OTHER, SELFPAY ==
[2020-09-14 12:10] VITALS: BMI 31.4
--- NOTE | 2021-11-21 | DI.MRI.S_ITS ---
PROCEDURE: MR KNEE LT WO CON INDICATIONS: PAIN IN LEFT KNEE TECHNIQUE: Noncontrast sagittal PD fast spin echo and T2 fast spin echo with fat saturation, sagittal 3-D FLASH with fat saturation; coronal T1 spin echo and PD fast spin echo with fat saturation, and axial PD fast spin echo with fat saturation through the knee. COMPARISON: [facility], CR, XR KNEE LT 3V, 06/19/2021, 9:32. FINDINGS: Image quality: Excellent. Menisci: The medial and lateral menisci demonstrate normal morphology and internal signal. The meniscal root ligaments appear intact. Cruciate ligaments: The anterior and posterior cruciate ligaments appear intact. Medial structures: The medial collateral ligament appears intact. Visualized portions of the pes anserinus tendons appear normal. No abnormal bursal fluid. Lateral structures: The lateral collateral ligament, long and short heads of the biceps femoris tendon appear intact. The popliteus tendon appears normal Iliotibial band appears normal. Anterior structures: The quadriceps tendon is intact. T2 hyperintense signal within the proximal patellar tendon , which may reflect partial tear. Patellar alignment is maintained. No edema in the infrapatellar fat pad. Bones and cartilage: No evidence of fracture. Superior and inferior patellar enthesophytes. Signal heterogeneity with fissuring of the lateral patellar facet hyaline cartilage. Deficiency of the hyaline cartilage overlying the medial trochlea with underlying subchondral edema, compatible with osteochondral injury. The medial and lateral compartment hyaline cartilage is maintained. Joint space: Small knee joint fluid. Trace fluid in the popliteal fossa. IMPRESSION: 1. No evidence of internal derangement. 2. Osteochondral injury involving the medial trochlea. 3. Small joint effusion. 4. Partial tear of the proximal patellar tendon. Dictated by: Paul Early M.D. on 11/21/2021 at 15:34 Approved by: Paul Early M.D. on 11/21/2021 at 15:42
== END ==
PROVIDERS: Referring Provider Orthopaedic Surgery; Visit Provider Orthopaedic Surgery
DX: S76.112A Strain of left quadriceps muscle, fascia and tendon, initial encounter (principal); M25.562 Pain in left knee; M25.462 Effusion, left knee
CPT/HCPCS: 73721